=== PATIENT | male | born 1955 | race Hispanic/Latino ===

== ENCOUNTER → 2019-08-03 | Day surgery (SDC) | payer MEDICARE ==
[2019-07-27 11:42] LABS: BASOPHILS # (AUTO) 0.1 (0.0-0.1); BASOPHILS % 0.5 % (0.0-1.0); EOSINOPHILS # (AUTO) 0.2 (0.0-0.4); HEMATOCRIT 45.3 % (38.2-49.6); HEMOGLOBIN 15.2 g/dL (14.0-18.0); LYMPHOCYTES # (AUTO) 2.4 (1.0-3.2); LYMPHOCYTES % 24.7 % (18.0-39.1); MEAN CORPUSCULAR HEMOGLOBIN 30.8 pg (28-32); MEAN CORPUSCULAR HGB CONC 33.6 g/dL (31-35); MEAN CORPUSCULAR VOLUME 91.9 fL (81-99); MONOCYTES # (AUTO) 0.6 (0.2-0.8); MONOCYTES % 6.5 % (4.4-11.3); NEUTROPHILS # (AUTO) 6.5 (2.1-6.9); PLATELET COUNT 326 x10e3/uL (140-360); RED BLOOD COUNT 4.93 x10e6/uL (4.3-5.7); RED CELL DISTRIBUTION WIDTH 13.1 % (11.7-14.4)
[~2019-08-03] MED LIST: AMLODIPINE BESYL5 MG PO; ASPIR 8181 MG PO; ATORVASTATIN CA20 MG PO; CLOPIDOGREL75 MG PO; LIDOCAINE HCL 2% LOCAL INJ 5 ML SDV VIAL INJ ONE; LISINOPRIL2.5 MG PO; MIDAZOLAM HCL 2 MG/2 ML VIAL ONE; NAPROXEN500 MG PO; PROPOFOL IV EMULSION 10 MG/ML 50 ML VIAL ONE; SIMETHICONE 40 MG/0.6 ML BTL ONE
--- OUTSIDE RECORDS SUMMARY | 2019-08-03 05:13 | XMS REPORT ---
Author Author [facility] Address Unknown Phone Unavailable Care Team Providers Care Tin Can Feeder Name Role Phone Unavailable Unavailable Problems This patient has no known problems. Allergies, Adverse Reactions, Alerts This patient has no known allergies or adverse reactions. Medications This patient has no known medications. Encounters Start Date/Time End Date/Time Encounter Type Admission Type Attending [facility] Facility Care Department Encounter ID 2018-08-26 00:00:00 2018-08-26 00:00:00 Outpatient [facility] [id number] 2018-07-06 08:10:55 2018-07-06 08:10:55 Outpatient [facility] [id number] 2018-04-13 10:00:03 2018-04-13 10:00:03 Outpatient [facility] [id number] 2017-12-22 08:04:39 2017-12-22 08:04:39 Outpatient [facility] [id number] 2017-11-06 08:51:50 2017-11-06 08:51:50 Outpatient [facility] [id number] 2017-08-11 14:48:23 2017-08-11 14:48:23 Outpatient [facility] [id number] 2017-07-22 08:45:30 2017-07-22 08:45:30 Outpatient [facility] [id number] 2017-06-24 14:29:03 2017-06-24 14:29:03 Outpatient [facility] [id number] 2017-06-17 14:39:21 2017-06-17 14:39:21 Outpatient [facility] [id number]
--- OUTSIDE RECORDS SUMMARY | 2019-08-03 05:13 | XMS REPORT | Clinical Summary ---
Author Author [employer] [facility] [employer] Address Unknown Phone Unavailable Care Team Providers Care Lead Clinical Research Coordinator Name Role Phone Asked, No Pcp PCP Unavailable Allergies No Known Allergies Medications No known medications Active Problems Problem Noted Date Hypokalemia-unclear etiology 05/12/2017 ST elevation myocardial infarction involving left anterior descending (LAD) 05/11/2017 coronary artery Essential hypertension 05/11/2017 HLD (hyperlipidemia) 05/11/2017 Family History Medical History Relation Name Comments Hypertension Brother Diabetes Father Stroke Father Hypertension Mother Diabetes Sister Hypertension Sister Relation Name Status Comments Brother Father Mother Sister Social History Date Tobacco Use Types Packs/Day Years Used Never Smoker Smokeless Tobacco: Never Used Drinks/Week oz/Week Comments Alcohol Use Defer Sex Assigned at Date Recorded Not on file Industry Job Start Date Occupation Not on file Not on file Not on file Travel End Travel History Travel Start No recent travel history available. Last Filed Vital Signs Not on file Plan of Treatment Health Maintenance Due Date Last Done Comments COLONOSCOPY SCREENING 2003 SHINGLES VACCINES (#1) 2003 65+ PNEUMOCOCCAL VACCINE 2018 (1 of 2 - PCV13) INFLUENZA VACCINE 07/01/2019 Implants Device Identifier Shelf Expiration Date Model / Serial / Lot Implanted Type Area Manufactur er 01/28/2018 [id number] / / [id number] Device Vasclr Clsr Vasoactive Cardiovasc N/A: N/A Intstnl Peptd 8fr Angio-Seal - ular [id number] Implants Implanted: 05/11/2017 at [facility] (Quantity not on file) 11/06/2017 [id number] / / Stent Coronary Syst Synergy (Mr) Coronary N/A: N/A BSC 3.00mm X 20mm - [id number] Stents INTERVENTI Implanted: 05/11/2017 at [facility] (Quantity not on file) CARDIOLOGY Results Not on fileafter 08/02/2018 Advance Directives For more information, please contact: [phone] Patient [employer] Service Technician Explanation Type Date Recorded Advance Directives, Living Will and Medical Power of Luggage Liner
[2019-08-03 09:10] VITALS: BP 144/78
== END | disposition home or self-care (01) ==
LOC: OR 05:00
PROVIDERS: ATTEND Internal Medicine Gastroenterology
DX: Z12.11 Encounter for screening for malignant neoplasm of colon (principal); K64.8 Other hemorrhoids; I25.10 Atherosclerotic heart disease of native coronary artery without angina pectoris; I10 Essential (primary) hypertension; E78.5 Hyperlipidemia, unspecified; I69.351 Hemiplegia and hemiparesis following cerebral infarction affecting right dominant side; E11.9 Type 2 diabetes mellitus without complications; Z01.810 Encounter for preprocedural cardiovascular examination; Z01.812 Encounter for preprocedural laboratory examination; Z79.02 Long term (current) use of antithrombotics/antiplatelets; Z79.82 Long term (current) use of aspirin; Z95.5 Presence of coronary angioplasty implant and graft
CPT/HCPCS: 36415; 85025; 93005; G0121; J2001; J2250; J2704; 45378